=== PATIENT | male | born 1950 | race Caucasian/White ===

== ENCOUNTER → 2017-05-29 | Outpatient (CLI) | payer MEDICARE, OTHER ==
[2017-05-29 12:55] LABS: ABSOLUTE EOSINOPHILS # (AUTO) 0.2 10^3/uL (0.0-0.6); ABSOLUTE LYMPHOCYTES (AUTO) 2.1 10^3/uL (0.5-4.7); ABSOLUTE NEUT (AUTO) 2.8 10^3/uL (1.7-8.2); BASOPHILS % (AUTO) 0.3 % (0-2); EOSINOPHILS % (AUTO) 2.5 % (0-6); HEMATOCRIT 43.4 % (37.9-51.0); HEMOGLOBIN 14.9 g/dL (13.5-17.0); LYMPHOCYTES % (AUTO) 34.7 % (13-45); MEAN CORPUSCULAR HEMOGLOBIN 32.8 pg (27.0-33.4); MEAN CORPUSCULAR HGB CONC 34.3 g/dL (32.0-36.0); MEAN CORPUSCULAR VOLUME 96 fl (80-97); MONOCYTES % (AUTO) 16.7 % (3-13); PLATELET COUNT 161 10^3/uL (150-450); RED BLOOD COUNT 4.54 10^6/uL (4.35-5.55); RED CELL DISTRIBUTION WIDTH 12.7 % (11.5-14.0); SEGMENTED NEUTROPHILS % (AUTO) 45.8 % (42-78); TOTAL CELLS COUNTED % (AUTO) 100 %; WHITE BLOOD COUNT 6.1 10^3/uL (4.0-10.5)
[2017-05-29 12:57] LABS: APPEARANCE,URINE SLIGHTLY-CLOUDY; BILIRUBIN,URINE NEGATIVE (NEGATIVE); GLUCOSE, URINE NEGATIVE (NEGATIVE); KETONES,URINE NEGATIVE (NEGATIVE); LEUKOCYTE ESTERASE,URINE NEGATIVE (NEGATIVE); NITRITE,URINE NEGATIVE (NEGATIVE); PROTEIN,URINE NEGATIVE (NEGATIVE); URINE SPECIFIC GRAVITY 1.015; UROBILINOGEN,URINE NEGATIVE mg/dL (<2.0)
--- NOTE | 2017-05-29 12:57 | RADIOLOGY REPORT (SQ) ---
EXAM DESCRIPTION: CHEST PA/LATERAL COMPLETED DATE/TIME: 05/29/2017 12:26 pm REASON FOR STUDY: PRE OP COMPARISON: None. EXAM PARAMETERS: NUMBER OF VIEWS: two views TECHNIQUE: Digital Frontal and Lateral radiographic views of the chest acquired. RADIATION DOSE: NA LIMITATIONS: none FINDINGS: LUNGS AND PLEURA: No opacities, masses or pneumothorax. No pleural effusion. MEDIASTINUM AND HILAR STRUCTURES: No masses or contour abnormalities. HEART AND VASCULAR STRUCTURES: Heart normal size. No evidence for failure. BONES: No acute findings. HARDWARE: None in the chest. OTHER: No other significant finding. IMPRESSION: NO SIGNIFICANT RADIOGRAPHIC FINDING IN THE CHEST. TECHNICAL DOCUMENTATION: JOB ID: [id number] [employer]- All Rights Reserved
--- NOTE | 2017-05-29 12:57 | EKG REPORT ---
SEVERITY:- BORDERLINE ECG - SINUS RHYTHM BORDERLINE T ABNORMALITIES, INFERIOR LEADS : Confirmed by: Jeremy Figueroa MD 29-May-2017 12:56:37
[2017-05-29 13:00] LABS: COLOR,URINE YELLOW
[2017-05-29 13:13] LABS: ANION GAP 7 (5-19); BLOOD UREA NITROGEN 12 mg/dL (7-20); CALCIUM 9.9 mg/dL (8.4-10.2); CARBON DIOXIDE 28 mmol/L (22-30); CHLORIDE 106 mmol/L (98-107); GLUCOSE 95 mg/dL (75-110); POTASSIUM 4.7 mmol/L (3.6-5.0); SODIUM 140.8 mmol/L (137-145)
== END ==
LOC: OD 11:19
PROVIDERS: ATTEND Orthopaedic Surgery
DX: Z01.810 Encounter for preprocedural cardiovascular examination (principal); Z01.812 Encounter for preprocedural laboratory examination; Z01.818 Encounter for other preprocedural examination
CPT/HCPCS: 36415; 71046; 80048; 81001; 85025; 93005; 93010

== ENCOUNTER 2017-06-16 05:31 | Inpatient (IN) | payer MEDICARE, OTHER ==
--- NOTE | 2017-06-13 11:25 | Physician Advisory Note ---
Physician Advisor ProgressNote .: Pursuant to the plan for Girma Wheeler, I have reviewed the medical record for this patient. Physician Advisor Statement: Status: Medicare pt for TKA - please document the specific clinical reasons that attending expects patient to need more than 1 midnight in hospital. - Otherwise, may be better to start as Outpatient status at hospital, & decide the next day whether patient is then sufficiently stable for d/c to home or needs a 2nd night in hospital (& then change to Inpatient with documentation of clinical concerns/issues that require the 2nd night). Discussion: 67yo Medicare pt, PMH includes: -colon CA (tx'd via chemo + Rt hemicolectomy) in distant past, now receiving routine surveillance, -chronic IBS (likely constipation-predominant given Amitiza Rx), -hyperlipidemia, -obesity (BMI 32), -GERD, -PAC (Premature atrial contractions) tx'd w/metoprolol. ASA score II. PROMIS score 36. Wears glasses. Limited in walking >1mile, climbing stairs, bending/kneeling/stooping. Surgical necessity adequately documented. No ongoing severe systemic dz documented so far. No concerning post-op complications expected per documentation so far. Lives with . No mention so far that pt expected to need SNF post-op, or that he has no one to assist him when he returns home. CK
[~2017-06-16 05:31] MED LIST: BUPIVACAINE INJ/PF LIPOSOME/PF 266 MG/20 ML SDV INJ PRN; CEFAZOLIN INJ 1 GM VIAL IV PRN; IBUPROFEN 800 MG in NORMAL SALINE 250 ML IV PRN; LACTATED RINGERS 1000 ML IV PRN; LANSOPRAZOLE 15 MG TAB.RAP.DR PO PRN; LIDOCAINE 0.5% INJ-PF (5 MG/ML) 50 ML SDV SUBCUT PRN; OXYCODONE HCL SR 10 MG TABLET PO PRN; VANCOMYCIN HCL 1,000 MG in DEXTROSE 5%-WATER 250 ML IV PRN
[2017-06-16] MEDS ORDERED: BUPIVACAINE INJ/PF LIPOSOME/PF 266 MG/20 ML SDV ONE (06:57)
[2017-06-16] MEDS ORDERED: THROMBIN (BOVINE) 5000 UNIT EPITAXIS KIT ONE (06:57)
[2017-06-16] MEDS ORDERED: THROMBIN (BOVINE) TOPICAL 20000 UNIT VIAL ONE (06:57)
[2017-06-16] MEDS ORDERED: FENTANYL CITRATE INJ/PF 100 MCG/2 ML AMPUL ONE (07:18)
[2017-06-16] MEDS ORDERED: EPHEDRINE SULFATE INJ 50 MG/1 ML AMPULE ONE (07:18)
[2017-06-16] MEDS ORDERED: MIDAZOLAM 2 MG/2 ML INJ ONE (07:18)
[2017-06-16] MEDS ORDERED: HYDROMORPHONE HCL INJ/PF 2 MG/ML AMPULE ONE (07:18)
[2017-06-16] MEDS ORDERED: TRANEXAMIC ACID INJ/PF 1,000 MG/10 ML SDV IV ONE ×3 (07:19→10:00)
[2017-06-16] MEDS ORDERED: ONDANSETRON HCL INJ/PF 4 MG/2 ML SDV ONE (07:19)
[2017-06-16] MEDS ORDERED: DIPHENHYDRAMINE HCL 50 MG/ML VIAL IV PRN ×2 (07:50→08:55)
[2017-06-16] MEDS ORDERED: MEPERIDINE HCL/PF INJ 25 MG/1 ML DISP.SYRIN IV PRN (07:50)
[2017-06-16] MEDS ORDERED: FENTANYL CITRATE INJ/PF 100 MCG/2 ML AMPUL IV PRN ×3 (07:50)
[2017-06-16] MEDS ORDERED: PROMETHAZINE HCL INJ 25 MG/1 ML VIAL IV PRN (07:50)
--- NOTE | 2017-06-16 08:35 | Operative Report ---
Operative Report DATE OF SURGERY: 06/16/17 PREOPERATIVE DIAGNOSIS: Right knee arthritis OPERATION: Right knee arthroplasty SURGEON: ANAYELI JERNIGAN 1ST ACADEMIC ASSISTANT: MALENA PIRES ANESTHESIA: Spinal TISSUE REMOVED OR ALTERED: Bone to pathology ESTIMATED BLOOD LOSS: 100 PROCEDURE: Implants used: Femur: [place] triathlon size 7 CR femur Tibia: 6 tibia Tibial liner: 9 mm CS insert Patella: 40 mm oval patella Procedure with the patient supine on the operating table the right the limb is prepped and draped in a sterile fashion. The limb was elevated for exsanguination and the tourniquet inflated to 280 torr. A standard midline median parapatellar approach the knee is taken. Access is gained to the femoral canal through the intercondylar notch. Intramedullary alignment instrumentation used to resect 10 mm of distal femur in 5 of valgus. Sizing guide indicated a size 7 femur. Appropriate cutting jig is then used to fashion anterior posterior and chamfer cuts. A trial reduction femurs performed and this is judged to be adequate. Attention was next turned to the tibia. Using an extra medullary alignment system 9 millimeters was resected off the lateral tibial plateau. This is sized to a size 6 tibia. A trial reduction was now performed with a 7 femur and a 6 tibia using a 9 millimeters spacer. It is full extension and central patellofemoral tracking. The articular surface the patella was next resected using an oscillating saw. All trial implants were removed. Polymethylmethacrylate is mixed and used to cement the above implants in place. On adequate curing the cement excess cement was removed the tourniquet was deflated hemostasis obtained the wound is then closed in layers using interrupted Vicryl followed by frantz. A sterile compressive dressing was applied and the patient returned to recovery room in satisfactory condition.
[2017-06-16] MEDS ORDERED: ONDANSETRON HCL INJ/PF 4 MG/2 ML SDV IV PRN ×2 (08:55→15:00)
[2017-06-16] MEDS ORDERED: MAG HYDROX/AL HYDROX/SIMETH SUSP 30 ML UDCUP PO PRN (08:55)
[2017-06-16] MEDS ORDERED: MORPHINE SULFATE 10 MG/ML INJ IM PRN (08:55)
[2017-06-16] MEDS ORDERED: ONDANSETRON 4 MG TAB.RAPDIS PO PRN ×2 (08:55→15:00)
[2017-06-16] MEDS ORDERED: ACETAMINOPHEN 325 MG TABLET PO PRN (08:55)
[2017-06-16] MEDS ORDERED: MORPHINE SULFATE 10 MG/ML INJ IV PRN ×3 (08:55)
--- NOTE | 2017-06-16 09:29 | RADIOLOGY REPORT (SQ) ---
EXAM DESCRIPTION: KNEE RIGHT 2 VIEWS COMPLETED DATE/TIME: 06/16/2017 9:17 am REASON FOR STUDY: Post OP -Long Cassette in PACU M17.11 UNILATERAL PRIMARY OSTEOARTHRITIS, RIGHT KN EE COMPARISON: None. NUMBER OF VIEWS: Two view(s). TECHNIQUE: Digital radiographic images of the right knee post-procedure. LIMITATIONS: None. FINDINGS: BONES: No worrisome or unexpected findings post-procedure. DEVICE: Total knee arthroplasty. SOFT TISSUES: No worrisome findings. Expected postoperative soft tissue changes. IMPRESSION: SATISFACTORY POSTOPERATIVE right KNEE. TECHNICAL DOCUMENTATION: JOB ID: [id number] [employer]- All Rights Reserved
[2017-06-16] MEDS ORDERED: [UNRECOGNIZED DRUG - OTHER] PO SCH (10:00)
[2017-06-16] MEDS ORDERED: UBIDECARENONE 400 MG PO SCH (10:00)
[2017-06-16] MEDS: OXYCODONE HCL SR 10 MG TABLET PO SCH ×2 (13:00→22:22)
[2017-06-16] MEDS: IBUPROFEN 800 MG in NORMAL SALINE 250 ML IV SCH ×2 (13:00→22:22)
[2017-06-16] MEDS: BUPROPION HCL 75 MG TABLET PO SCH ×2 (13:00→22:23)
[2017-06-16] MEDS: CYANOCOBALAMIN (VITAMIN B-12) 1,000 MCG TABLET PO SCH (13:00)
[2017-06-16] MEDS: ASPIRIN 81 MG TABLET, ENT COATED PO SCH (13:00)
[2017-06-16] MEDS: HYDROMORPHONE HCL INJ/PF 2 MG/ML AMPULE IV PRN ×4 (13:24→18:23)
[2017-06-16] MEDS ORDERED: ACETAMINOPHEN 100 ML IV ONE (14:55)
[2017-06-16] MEDS: PREGABALIN 75 MG CAPSULE PO SCH (17:35)
[2017-06-16] MEDS: LUBIPROSTONE 8 MCG CAPSULE PO SCH (17:35)
[2017-06-16] MEDS: OXYCODONE HCL IR 5 MG TABLET PO PRN (17:37)
[2017-06-16] MEDS: METOPROLOL SUCCINATE 25 MG TAB.SR.24H PO SCH (17:39)
[2017-06-16] MEDS ORDERED: VANCOMYCIN HCL 1,000 MG in DEXTROSE 5%-WATER 250 ML IV ONE (20:55)
[2017-06-16] MEDS ORDERED: (PENDING PHARMACY ID) (Omeprazole [Prilosec] 20 MG) PO SCH (22:00)
[2017-06-16] MEDS ORDERED: (PENDING PHARMACY ID) (Bupropion Hcl [Bupropion Xl] 300 MG) PO SCH (22:00)
[2017-06-16] MEDS: ATORVASTATIN CALCIUM 10 MG TABLET PO SCH (22:22)
[2017-06-16] MEDS: ZOLPIDEM TARTRATE 5 MG TABLET PO PRN (22:22)
[2017-06-17] MEDS: LANSOPRAZOLE 30 MG TAB.RAP.DR PO SCH (05:53)
[2017-06-17] MEDS: IBUPROFEN 800 MG in NORMAL SALINE 250 ML IV SCH ×3 (05:53→22:16)
[2017-06-17 06:47] LABS: HEMATOCRIT 37.2 % (37.9-51.0); HEMOGLOBIN 12.6 g/dL (13.5-17.0); MEAN CORPUSCULAR HEMOGLOBIN 32.7 pg (27.0-33.4); MEAN CORPUSCULAR HGB CONC 33.8 g/dL (32.0-36.0); MEAN CORPUSCULAR VOLUME 97 fl (80-97); PLATELET COUNT 138 10^3/uL (150-450); RED BLOOD COUNT 3.85 10^6/uL (4.35-5.55); RED CELL DISTRIBUTION WIDTH 12.4 % (11.5-14.0); WHITE BLOOD COUNT 11.3 10^3/uL (4.0-10.5)
[2017-06-17] MEDS: OXYCODONE HCL IR 5 MG TABLET PO PRN (06:55)
[2017-06-17 07:02] LABS: ANION GAP 8 (5-19); BLOOD UREA NITROGEN 13 mg/dL (7-20); CALCIUM 8.4 mg/dL (8.4-10.2); CARBON DIOXIDE 28 mmol/L (22-30); CHLORIDE 104 mmol/L (98-107); GLUCOSE 146 mg/dL (75-110); POTASSIUM 4.4 mmol/L (3.6-5.0); SODIUM 139.6 mmol/L (137-145)
--- NOTE | 2017-06-17 07:11 | PDOC PROGRESS REPORT ---
Subjective Progress Note for:: 06/17/17 Subjective:: 67-year-old white male 1 day status post total right knee arthroplasty. Patient sitting upright in hospital bed comfortable answering questions in appropriate mood and affect. Reason For Visit: RIGHT KNEE ARTHRITIS Physical Exam Vital Signs: Temp Pulse Resp BP Pulse Ox 37.0 C 69 14 134/73 H 98 06/16/17 23:48 06/16/17 23:48 06/16/17 23:48 06/16/17 23:48 06/16/17 23:48 Intake & Output 06/16/17 06/17/17 06/18/17 06:59 06:59 06:59 Intake Total 0 6196 Output Total 5750 Balance 0 446 Weight 122 kg General appearance: PRESENT: no acute distress, well-developed, well-nourished Head exam: PRESENT: atraumatic, normocephalic Respiratory exam: PRESENT: unlabored Additional comments: Nasal cannula in place. Pulses: PRESENT: normal dorsalis pedis pul, +2 pedal pulses bilateral Vascular exam: PRESENT: normal capillary refill Additional comments: Patient sitting upright in hospital bed with bilateral lower extremities in full extension with slight flexion contracture of the right knee. His postop compression dressing is clean dry and intact. This is left in place. He has brisk capillary refill to toes on bilateral lower extremities and minimal pedal edema. His leg lengths are equal and distal neurovascular exam is intact. Musculoskeletal exam: PRESENT: ambulatory Additional comments: Patient makes steady progress of physical therapy ambulating 80 feet independently postoperatively. He will continue to work with physical therapy to improve strength range of motion of right lower extremity throughout his stay in the hospital. Neurological exam: PRESENT: alert, awake, oriented to person, oriented to place , oriented to time, oriented to situation, CN II-XII grossly intact. ABSENT: motor sensory deficit Psychiatric exam: PRESENT: appropriate affect, normal mood. ABSENT: homicidal ideation, suicidal ideation Skin exam: PRESENT: dry, intact, warm. ABSENT: cyanosis, rash Results Laboratory Results: 06/17/17 06:10 06/17/17 06:10 06/17/17 06/17/17 06:10 06:10 WBC 11.3 H RBC 3.85 L Hgb 12.6 L Hct 37.2 L MCV 97 MCH 32.7 MCHC 33.8 RDW 12.4 Plt Count 138 L Sodium 139.6 Potassium 4.4 Chloride 104 Carbon Dioxide 28 Anion Gap 8 BUN 13 Creatinine 0.85 Est GFR ( Amer) > 60 Est GFR (Non-Af Amer) > 60 Glucose 146 H Calcium 8.4 Impressions: Knee X-Ray 06/16/17 08:56 IMPRESSION: SATISFACTORY POSTOPERATIVE right KNEE. Assessment & Plan - Diagnosis (1) Arthritis of knee, right Is this a current diagnosis for this admission?: Yes - Plan Summary Plan Summary: 67-year-old white male 1 day status post total right knee arthroplasty. Patient has made great progress with physical therapy ambulating 80 feet independently postoperatively. He will continue to work with PT throughout his stay in the hospital to improve strength range of motion of right lower extremity. He reports that he was comfortable overnight and is been performing his exercises. As he still has slight flexion contracture in the right knee foot was elevated on a few pillows to allow gravity to pull the knee into extension. Pending progress of physical therapy he will be discharged later this week.
[2017-06-17] MEDS: OXYCODONE HCL SR 10 MG TABLET PO SCH ×2 (09:45→22:16)
[2017-06-17] MEDS: ASPIRIN 81 MG TABLET, ENT COATED PO SCH (09:46)
[2017-06-17] MEDS: PREGABALIN 75 MG CAPSULE PO SCH ×2 (09:46→17:22)
[2017-06-17] MEDS: TAMSULOSIN HCL 0.4 MG CAP.SR.24H PO SCH (09:46)
[2017-06-17] MEDS ORDERED: FLUTICASONE NASAL SPRAY 50 MCG/SPRY 120 SPRAY/16 GM NASL SCH (10:00)
[2017-06-17] MEDS: HYDROMORPHONE HCL INJ/PF 2 MG/ML AMPULE IV PRN (12:30)
[2017-06-17] MEDS: CYANOCOBALAMIN (VITAMIN B-12) 1,000 MCG TABLET PO SCH (12:37)
--- NOTE | 2017-06-17 14:30 | Physician Advisory Note ---
Physician Advisor ProgressNote .: Pursuant to the plan for [facility], I have reviewed the medical record for this patient. Physician Advisor Statement: Status f/u: Spoke w/ortho () for clarification r.e. today's status. Pt did very well initially with PT yesterday, but later in PM 06/16 he "backslid" & was needing increasing help from nursing staff to do ADLs. Not yet sufficiently progressed w/PT for safe d/c today per ortho - needs 2nd MN of hospital care & monitoring with continued PT consistent progress before he can be d/c'd safely. Therefore, appropriate to change to Inpatient status as of today. Thanks! CK
[2017-06-17] MEDS: LUBIPROSTONE 8 MCG CAPSULE PO SCH (17:22)
[2017-06-17] MEDS: METOPROLOL SUCCINATE 25 MG TAB.SR.24H PO SCH (17:24)
[2017-06-17] MEDS ORDERED: NORMAL SALINE 250 ML IV ONE (20:45)
[2017-06-17] MEDS: ATORVASTATIN CALCIUM 10 MG TABLET PO SCH (22:14)
[2017-06-17] MEDS: ZOLPIDEM TARTRATE 5 MG TABLET PO PRN (22:15)
[2017-06-18] MEDS: HYDROMORPHONE HCL INJ/PF 2 MG/ML AMPULE IV PRN ×2 (03:02→16:02)
[2017-06-18] MEDS: LANSOPRAZOLE 30 MG TAB.RAP.DR PO SCH (05:55)
[2017-06-18] MEDS: IBUPROFEN 800 MG in NORMAL SALINE 250 ML IV SCH (05:56)
[2017-06-18 07:21] LABS: HEMATOCRIT 33.8 % (37.9-51.0); HEMOGLOBIN 11.4 g/dL (13.5-17.0); MEAN CORPUSCULAR HGB CONC 33.7 g/dL (32.0-36.0); MEAN CORPUSCULAR VOLUME 98 fl (80-97); PLATELET COUNT 118 10^3/uL (150-450); RED BLOOD COUNT 3.45 10^6/uL (4.35-5.55); RED CELL DISTRIBUTION WIDTH 12.7 % (11.5-14.0); WHITE BLOOD COUNT 10.9 10^3/uL (4.0-10.5)
--- NOTE | 2017-06-18 07:24 | PDOC PROGRESS REPORT ---
Subjective Progress Note for:: 06/18/17 Reason For Visit: S/P TOTAL KNEE ARTHROPLASTY FORCONTINUED TREATMENT 67-year-old white male status post right knee arthroplasty postop day 2 with a questionable vagovagal episode yesterday Physical Exam Vital Signs: Temp Pulse Resp BP Pulse Ox 37.2 C 84 18 112/57 L 95 06/18/17 04:04 06/18/17 04:04 06/18/17 04:04 06/18/17 04:04 06/18/17 04:04 Intake & Output 06/17/17 06/18/17 06/19/17 06:59 06:59 06:59 Intake Total 6196 5340 Output Total 5750 2550 Balance 446 2790 Weight 122 kg General appearance: PRESENT: no acute distress Head exam: PRESENT: normocephalic Respiratory exam: PRESENT: unlabored Cardiovascular exam: PRESENT: RRR Pulses: PRESENT: +1 pedal pulses bilateral Vascular exam: PRESENT: normal capillary refill GI/Abdominal exam: PRESENT: soft Rectal exam: PRESENT: deferred Extremities exam: PRESENT: other - Right knee compressive wrap removed today. Underlying dressing with small amount of bloody drainage. No surrounding erythema. Minimal tenderness. Full extension noted. Neurological exam: PRESENT: alert, awake, oriented to person, oriented to place , oriented to time, oriented to situation. ABSENT: motor sensory deficit Psychiatric exam: PRESENT: appropriate affect, normal mood. ABSENT: homicidal ideation, suicidal ideation Skin exam: PRESENT: dry, intact, warm. ABSENT: cyanosis, rash Results Laboratory Results: 06/17/17 06:10 Impressions: Knee X-Ray 06/16/17 08:56 IMPRESSION: SATISFACTORY POSTOPERATIVE right KNEE. Status: Imported from PACS Assessment & Plan - Diagnosis (1) Vasovagal episode Is this a current diagnosis for this admission?: Yes Plan: Patient with a suspected vasovagal episode yesterday while ambulating. Will continue with physical therapy today and continued observation. (2) Arthritis of knee, right Is this a current diagnosis for this admission?: Yes Plan: 67-year-old white male status post right knee arthroplasty postop day 2. Patient made excellent progress with physical therapy until there was a questionable vagovagal episode yesterday. Will continue with physical therapy today and ongoing observation. - Time Time Spent with patient: 15-24 minutes Anticipated discharge: Home with Homehealth Within: within 24 hours
--- NOTE | 2017-06-18 07:57 | EKG REPORT ---
SEVERITY:- BORDERLINE ECG - SINUS RHYTHM BORDERLINE LEFT AXIS DEVIATION BORDERLINE T ABNORMALITIES, INFERIOR LEADS : Confirmed by: Jeremy Figueroa MD 18-Jun-2017 07:57:14
[2017-06-18] MEDS: PREGABALIN 75 MG CAPSULE PO SCH ×2 (09:06→19:47)
[2017-06-18] MEDS: ASPIRIN 81 MG TABLET, ENT COATED PO SCH (09:06)
[2017-06-18] MEDS: TAMSULOSIN HCL 0.4 MG CAP.SR.24H PO SCH (09:07)
[2017-06-18] MEDS: CYANOCOBALAMIN (VITAMIN B-12) 1,000 MCG TABLET PO SCH (15:58)
[2017-06-18] MEDS: METOPROLOL SUCCINATE 25 MG TAB.SR.24H PO SCH (19:47)
[2017-06-18] MEDS: LUBIPROSTONE 8 MCG CAPSULE PO SCH (19:47)
[2017-06-18] MEDS: ATORVASTATIN CALCIUM 10 MG TABLET PO SCH (22:13)
[2017-06-18] MEDS: ZOLPIDEM TARTRATE 5 MG TABLET PO PRN (22:52)
[2017-06-18] MEDS: OXYCODONE HCL IR 5 MG TABLET PO PRN (22:52)
[2017-06-19] MEDS: LANSOPRAZOLE 30 MG TAB.RAP.DR PO SCH (05:51)
--- NOTE | 2017-06-19 07:08 | PDOC PROGRESS REPORT ---
Subjective Progress Note for:: 06/19/17 Subjective:: 67-year-old white male 3 days status post total left knee arthroplasty. Patient sitting upright in hospital bed with bilateral lower extremities in full extension. His OpSite dressing is saturated with ailyn blood. Patient notes he felt better than yesterday however is not as good as he wanted to be postoperatively at this point. Reason For Visit: S/P TOTAL KNEE ARTHROPLASTY WITH NEED FOR Physical Exam Vital Signs: Temp Pulse Resp BP Pulse Ox 38.0 C 90 18 108/57 L 90 L 06/19/17 03:04 06/19/17 03:04 06/19/17 03:04 06/19/17 03:04 06/19/17 03:04 Intake & Output 06/18/17 06/19/17 06/20/17 06:59 06:59 06:59 Intake Total 6090 1316 Output Total 2550 1900 Balance 3540 -584 General appearance: PRESENT: no acute distress, well-developed, well-nourished Head exam: PRESENT: atraumatic, normocephalic Respiratory exam: PRESENT: unlabored Pulses: PRESENT: normal dorsalis pedis pul, +2 pedal pulses bilateral Additional comments: Patient sitting upright in hospital bed with bilateral lower extremities in full extension. Patient's left lower extremity is elevated on multiple towels to pull the knee in full extension. Patient's OpSite dressing is saturated with ailyn blood. This is removed and a new dressing is placed. This is clean dry and intact. He has minimal pedal edema brisk capillary refill to bilateral lower extremities leg lengths equal and distal neurovascular exam is intact. Musculoskeletal exam: PRESENT: ambulatory Additional comments: Patient has made steady progress physical therapy ambulating 250 feet independently. He will continue work with physical therapy throughout his stay in the hospital to improve strength range of motion and stimulation of left lower extremity. Neurological exam: PRESENT: alert, awake, oriented to person, oriented to place , oriented to time, oriented to situation, CN II-XII grossly intact. ABSENT: motor sensory deficit Psychiatric exam: PRESENT: appropriate affect, normal mood. ABSENT: homicidal ideation, suicidal ideation Skin exam: PRESENT: dry, intact, warm. ABSENT: cyanosis, rash Results Laboratory Results: 06/18/17 06:15 06/17/17 06:10 06/18/17 06:15 WBC 10.9 H RBC 3.45 L Hgb 11.4 L Hct 33.8 L MCV 98 H MCH 33.0 MCHC 33.7 RDW 12.7 Plt Count 118 L Impressions: Knee X-Ray 06/16/17 08:56 IMPRESSION: SATISFACTORY POSTOPERATIVE right KNEE. Assessment & Plan - Diagnosis (1) Arthritis of knee, right Is this a current diagnosis for this admission?: Yes - Plan Summary Plan Summary: 67-year-old white male 3 days status post total left knee arthroplasty. Patient continues to make progress with physical therapy ambulating 250 feet independently. Continue to work with physical therapy throughout his stay in the hospital. He had a bout of vasovagal syncope during physical therapy and is felt unsteady ever since. He reports that at this point if he were to go home he fears falling. Therefore he will remain in the hospital an extra day and work with physical therapy for only distance ambulation but balance and stability with ambulation. He will likely be discharged tomorrow to his home. His OpSite dressing was saturated with ailyn blood and was changed this morning new dressing applied and is clean dry and intact.
[2017-06-19] MEDS: HYDROMORPHONE HCL INJ/PF 2 MG/ML AMPULE IV PRN ×4 (07:52→22:20)
[2017-06-19 07:56] LABS: HEMOGLOBIN 10.4 g/dL (13.5-17.0); MEAN CORPUSCULAR HEMOGLOBIN 33.2 pg (27.0-33.4); MEAN CORPUSCULAR HGB CONC 34.7 g/dL (32.0-36.0); MEAN CORPUSCULAR VOLUME 96 fl (80-97); PLATELET COUNT 143 10^3/uL (150-450); RED BLOOD COUNT 3.14 10^6/uL (4.35-5.55); RED CELL DISTRIBUTION WIDTH 12.6 % (11.5-14.0); WHITE BLOOD COUNT 10.7 10^3/uL (4.0-10.5)
[2017-06-19] MEDS: TAMSULOSIN HCL 0.4 MG CAP.SR.24H PO SCH (10:33)
[2017-06-19] MEDS: ASPIRIN 81 MG TABLET, ENT COATED PO SCH (10:33)
[2017-06-19] MEDS: PREGABALIN 75 MG CAPSULE PO SCH ×2 (10:33→17:58)
[2017-06-19] MEDS: OXYCODONE HCL IR 5 MG TABLET PO PRN (12:31)
[2017-06-19] MEDS: CYANOCOBALAMIN (VITAMIN B-12) 1,000 MCG TABLET PO SCH (12:31)
[2017-06-19] MEDS: METOPROLOL SUCCINATE 25 MG TAB.SR.24H PO SCH (17:58)
[2017-06-19] MEDS: LUBIPROSTONE 8 MCG CAPSULE PO SCH (17:58)
[2017-06-19] MEDS: ZOLPIDEM TARTRATE 5 MG TABLET PO PRN (22:20)
[2017-06-19] MEDS: ATORVASTATIN CALCIUM 10 MG TABLET PO SCH (22:21)
[2017-06-20] MEDS: HYDROMORPHONE HCL INJ/PF 2 MG/ML AMPULE IV PRN (03:25)
[2017-06-20] MEDS: LANSOPRAZOLE 30 MG TAB.RAP.DR PO SCH (05:13)
--- NOTE | 2017-06-20 06:52 | PDOC DISCHARGE SUMMARY ---
General - Admit/Disc Date/PCP Admission Date/Primary Care Provider: 06/17/17 15:47 STEVE CARRILLO MD Discharge Date: 06/20/17 - Discharge Diagnosis (1) Arthritis of knee, right Is this a current diagnosis for this admission?: Yes - Additional Information Resuscitation Status: Full Code Discharge Diet: As Tolerated, Regular Discharge Activity: Activity As Tolerated, No Driving, No tub bath, Walk Frequently Home Medications: Aspirin [Aspirin EC] 81 mg PO DAILY 08/09/13 Cyanocobalamin/Cobamamide [Vitamin B-12/Cobamamide SL 5000 Mcg Tab] 5,000 mcg PO DAILY 08/09/13 Metoprolol Succinate [Toprol Xl 25 mg Tab.sr] 12.5 mg PO DAILY 08/09/13 Ubidecarenone [Co Q-10] 400 mg PO DAILY 08/09/13 Lubiprostone [Amitiza 8 Mcg Capsule] 8 mcg PO DAILY 05/28/17 Pravastatin Sodium [Pravachol] 20 mg PO DAILY 05/28/17 Bupropion HCl [Bupropion Xl] 150 mg PO QAM 06/16/17 Docusate Sodium [Colace 100 mg Capsule] 100 mg PO BID 06/16/17 Tamsulosin HCl [Flomax 0.4 mg Cap.sr] 0.4 mg PO DAILY 06/16/17 History of Present Illness History of Present Illness: DEYSI DONG is a 67 year old male with progressive pain and decreased functional mobility due to arthritis of the right knee. He is admitted to the hospital and undergoes elective total right knee arthroplasty. Hospital Course Hospital Course: 67-year-old white male with right knee arthritis admitted to the hospital through the OR and undergoes elective total right knee arthroplasty. This is an uncomplicated procedure and he is returned to PACU in satisfactory condition. He is taken to the surgical floor where his seen by nursing staff and Dr. Pierre for pain control as well as physical therapy for weightbearing as tolerated. He makes progress with physical therapy ambulating up to 300 feet independently. He did have a bout of vasovagal syncope while working with therapy which made patient tentative to further progress. He was successful in making further progress. He will continue to work with home physical therapy to improve strength range of motion of right lower extremity and improve distance of ambulation. He will be discharged to his home today with home health nursing , home physical therapy and a wheeled walker. Physical Exam Vital Signs: Temp Pulse Resp BP Pulse Ox 36.8 C 83 16 101/37 L 92 06/20/17 03:29 06/20/17 03:29 06/20/17 03:29 06/20/17 03:29 06/20/17 03:29 Intake & Output 06/18/17 06/19/17 06/20/17 06:59 06:59 06:59 Intake Total 6090 1316 780 Output Total 2550 1900 590 Balance 3540 -584 190 General appearance: PRESENT: no acute distress, well-developed, well-nourished Respiratory exam: PRESENT: unlabored Pulses: PRESENT: normal dorsalis pedis pul, +2 pedal pulses bilateral Vascular exam: PRESENT: normal capillary refill Additional comments: Patient lying recumbent in hospital bed comfortably this morning with right lower extremity elevated on multiple pillows. His OpSite honeycomb dressing is clean dry and intact. This is left in place. He has minimal pedal edema and brisk capillary refill to toes and bilateral lower extremities. Sensory motor functions are intact and his distal neurovascular exam is intact. Musculoskeletal exam: PRESENT: ambulatory Additional comments: Patient has made steady progress with physical therapy ambulating up to 300 feet independently. He will continue to work with physical therapy in his home to improve strength range of motion and distance of ambulation on right lower extremity. Initially had issues with vasovagal syncope during physical therapy sessions. However he was able to progress further. Neurological exam: PRESENT: alert, awake, oriented to person, oriented to place , oriented to time, oriented to situation, CN II-XII grossly intact. ABSENT: motor sensory deficit Psychiatric exam: PRESENT: appropriate affect, normal mood. ABSENT: homicidal ideation, suicidal ideation Skin exam: PRESENT: dry, intact, warm. ABSENT: cyanosis, rash Results Laboratory Results: 06/19/17 07:27 06/17/17 06:10 06/19/17 07:27 WBC 10.7 H RBC 3.14 L Hgb 10.4 L Hct 30.0 L MCV 96 MCH 33.2 MCHC 34.7 RDW 12.6 Plt Count 143 L Impressions: Knee X-Ray 06/16/17 08:56 IMPRESSION: SATISFACTORY POSTOPERATIVE right KNEE. Qualifiers - * PATEINT BEING DISCHARGED WITH ANY OF THE FOLLOWING DIAGNOSIS?: No VTE patient discharged on overlapping Therapy?: No Plan Discharge Plan: 59-year-old white male 4 days status post total right knee arthroplasty. Patient has made steady progress with physical therapy ambulating up to 300 feet independently in the hospital. He initially had issues with vasovagal syncope however was able to progress further. He is concerned that he did not have much stair training and has flights of stairs in his home. Patient was reassured that hopefully today they would address this issue. He will continue to work with home physical therapy to improve strength range of motion of right lower extremity. He will be discharged to his home today with home health nursing, home physical therapy, and a wheeled walker. He will follow-up with our office with Dr. Pierre and [facility] for surgery 2 weeks postoperatively for reevaluation and staple removal. Time Spent: Less than 30 Minutes
[2017-06-20] MEDS: TAMSULOSIN HCL 0.4 MG CAP.SR.24H PO SCH (10:01)
[2017-06-20] MEDS: OXYCODONE HCL IR 5 MG TABLET PO PRN (10:01)
[2017-06-20] MEDS: PREGABALIN 75 MG CAPSULE PO SCH (10:02)
[2017-06-20] MEDS: ASPIRIN 81 MG TABLET, ENT COATED PO SCH (10:02)
[2017-06-20 10:33] VITALS: BP 108/50
== END 2017-06-20 12:13 | disposition home health service (06) | DRG 470 ==
LOC: INOR 05:31 → INTOOBSV 05:31 → 4S 10:53 → OBSVTOIN 06-17 15:47
PROVIDERS: ADMIT Orthopaedic Surgery; ATTEND Orthopaedic Surgery
PROC: 0SRC0J9 Replacement of Right Knee Joint with Synthetic Substitute, Cemented, Open Approach (ICD-10-PCS; principal; 2017-06-16 07:30)
DX: M17.11 Unilateral primary osteoarthritis, right knee (principal); I10 Essential (primary) hypertension; E78.5 Hyperlipidemia, unspecified; K21.9 Gastro-esophageal reflux disease without esophagitis; K58.9 Irritable bowel syndrome, unspecified; R55 Syncope and collapse; Z85.038 Personal history of other malignant neoplasm of large intestine; Z90.49 Acquired absence of other specified parts of digestive tract; Z79.82 Long term (current) use of aspirin; Z79.899 Other long term (current) drug therapy
CPT/HCPCS: 01402; 36415; 62270; 80048; 82962; 85027; 88305; 88311; 93005; 93010; 94799; A9270 GY; C9290; G8978-GP; G8979-GP; G8987-GO; G8988-GO; J0690; J1170; J1741; J2250; J2405; J3010; J3370; J3490; J7050; J7060